=== PATIENT | female | born 1955 | race Two or more races ===

== ENCOUNTER 2020-04-19 | Outpatient (CLI) | payer OTHER | END 2020-04-19 12:48 | disposition home or self-care (01) | LOC: PPH VACUNA | DX: Z23 Encounter for immunization (principal) ==

== ENCOUNTER 2020-05-09 14:48 | Outpatient (CLI) | payer OTHER | END 2020-05-09 14:49 | disposition home or self-care (01) | LOC: PPH VACUNA 14:48 | DX: Z23 Encounter for immunization (principal) ==